=== PATIENT | male | born 1970 | race Caucasian/White ===

== ENCOUNTER → 2018-05-26 | Outpatient (CLI) | payer BC | LOC: LABWHC1 09:46 | PROVIDERS: ATTEND Internal Medicine Critical Care Medicine | DX: J45.901 Unspecified asthma with (acute) exacerbation (principal) | CPT/HCPCS: 36415; 82785 ==

== ENCOUNTER → 2020-08-01 | Outpatient (CLI) | payer BC ==
--- NOTE | 2020-08-01 10:51 | CT ---
EXAMINATION TYPE: CT heart w calcium score DATE OF EXAM: 08/01/2020 COMPARISON: HISTORY: Screening for cardiovascular disorder. 213.9 CT DLP: 179.7 mGycm Automated exposure control for dose reduction was used. CT CALCIUM SCORING Coronary calcium is a marker for plaque (fatty deposits) in a blood vessel or atherosclerosis (harden ing of the arteries). The presence and amount of calcium detected in a coronary artery by the CT sca n, indicates the presence and amount of atherosclerotic plaque. These calcium deposits appear years before the development of heart disease symptoms such as chest pain and shortness of breath. A calcium score is computed for each of the coronary arteries based upon the volume and density of th e calcium deposits. This can be referred to as your calcified plaque burden. It does not correspond directly to the percentage of narrowing in the artery but does correlate with the severity of the un derlying coronary atherosclerosis. PROCEDURE TECHNIQUE - Prospective Gating was used. Slice thickness: 3mm. Density threshold (HU): 130, Pixel threshold: 3, Algorithm: discrete. RESULTS Region: LM Calcium Score (Agatston): 7.91 Volume (mm3): 12.7 Mass (g): 0 Region: RCA Calcium Score (Agatston): 0 Volume (mm3): 0 Mass (g): 0 Region: LAD Calcium Score (Agatston): 0 Volume (mm3): 0 Mass (g): 0 Region: CX Calcium Score (Agatston): 0 Volume (mm3): 0 Mass (g): 0 Region: PDA Calcium Score (Agatston): 0 Volume (mm3): 0 Mass (g): 0 Total: Calcium Score (Agatston): 7.91 Volume (mm3): 12.7 Mass (g): 0 TOTAL CALCIUM SCORE: 7.91 IMPRESSION: Calcium Score: 7.91 Implication: Minimal identifiable plaque. Risk of Coronary Artery Disease: Very unlikely less than 10% CALCIUM SCORE IMPLICATION RISK OF C ORONARY ARTERY DISEASE 0 No identifiable plaque Very low, generally less than 5% 1-10 Minimal identifiable plaque Very unlikely, less than 10% 11-100 Definite, at least mild atherosclerotic plaque Mild or m inimal coronary narrowings likely 101-400 Definite, at least moderate atherosclerotic plaque Mild coronary ar valeria disease highly likely, significant narrowing possible 401 or Higher Extensive atherosclerotic plaque High lik elihood of at least one significant coronary narrowing
--- NOTE | 2020-08-01 12:31 | P.STRESS ---
- Stress Test Note Stress Test Results/Findings: Exam Performed: stress test Exam Date: 08/01/20 Reason for Exam: FAMILY HISTORY CAD Height: 6 ft Weight: 136.078 kg Protocol: AMELIA Stage: 3 Duration of Exercise: 7:30 Resting Heart Rate: 75 Resting Blood Pressure: 101/80 Maximum Achieved Heart Rate: 155 Maximum Achieved Blood Pressure: 216/64 85% PMHR: 145 100% PMHR: 171 METS: 9.1 Technologist Comment: Stress Test Results/Findings: This is a 49-year-old gentleman with history of hypertension, family history of ischemic heart disease and smoking history, being evaluated for cardiac status. Stress data: Baseline EKG showed sinus rhythm with normal IA interval and QRS duration. Blood pressure at rest is 101/80. Pulse rate of 75. Patient walked on the Amelia protocol for 7 minutes and 30 seconds achieving a maximum rate of 155 with a blood pressure of 216/64. EKGs taken during Site did not reveal any changes of ischemia. Patient did not experience any chest pain. Final impression: #1. Negative stress test #2 patient did not express any chest pain #3. No arrhythmias detected #4 patients exercise capacity is below averag e.
== END | disposition home or self-care (01) ==
LOC: RADNMMAIN 08:27
PROVIDERS: ATTEND Family Medicine
DX: Z13.6 Encounter for screening for cardiovascular disorders (principal); I25.10 Atherosclerotic heart disease of native coronary artery without angina pectoris; R07.9 Chest pain, unspecified
CPT/HCPCS: 75571; 93017

== ENCOUNTER 2024-02-25 09:03 | Day surgery (SDC) | payer BC ==
[2024-02-23 13:48] VITALS: BMI 39.3
[~2024-02-25 09:03] MED LIST: LIDOCAINE 1% (10MG/ML) FOR IV START INTRADERMA PRN; droPERidol 5 MG/2 ML VIAL IVP ONE; fentaNYL (PF) 50 MCG/ML 2 ML AMP IV PRN
[2024-02-25] MEDS: IV FLUID CONTINUATION 1,000 ML IV ONE (09:41)
[2024-02-25] MEDS: LACTATED RINGERS 1,000 ML IV SCH (09:50)
[2024-02-25] MEDS: MIDAZOLAM 2 MG/2 ML VIAL IV ONE (09:58)
[2024-02-25 10:18] LABS: Glucose,Whole Blood 104 mg/dL (70-110)
--- NOTE | 2024-02-25 10:18 | P.ANPRN ---
Procedure Note - Anesthesia - Nerve Block Performed Left Popliteal Single Time Out Performed: Yes Date of Procedure: 02/25/24 Procedure Start Time: 09:59 Procedure Stop Time: 10:04 Location of Patient: PreOp Indication: Acute Post-Operative Pain, Analgesia, Requested by Surgeon Sedation Type: Sedate with meaningful contact maintained Preparation: Sterile Prep Position: Right Lateral Catheter: None Needle Types: Pajunk Needle Gauge: 21 Ultrasound used to visualize needle placement: Yes Ultrasound used to observe medication spread: Yes Injectate: 0.5% Ropivacaine (see comment for volume) (Ropiv 20ml+Decadron 4mg) Blood Aspirated: No Pain Paresthesia on Injection Noted: No Resistance on Injection: Normal Image Stored and Saved: Yes Events: Uneventful and Well Tolerated
--- NOTE | 2024-02-25 10:19 | P.ANPRN ---
Procedure Note - Anesthesia - Nerve Block Performed Left Adductor Canal Single Time Out Performed: Yes Date of Procedure: 02/25/24 Procedure Start Time: 10:04 Procedure Stop Time: 10:09 Location of Patient: PreOp Indication: Acute Post-Operative Pain, Analgesia, Requested by Surgeon Sedation Type: Sedate with meaningful contact maintained Preparation: Sterile Prep Position: Supine Catheter: None Needle Types: Pajunk Needle Gauge: 21 Ultrasound used to visualize needle placement: Yes Ultrasound used to observe medication spread: Yes Injectate: 0.5% Ropivacaine (see comment for volume) (Ropiv 20ml+[id number]) Blood Aspirated: No Pain Paresthesia on Injection Noted: No Resistance on Injection: Normal Image Stored and Saved: Yes Events: Uneventful and Well Tolerated
[2024-02-25] MEDS: DEXAMETHASONE SOD PHOSPHATE 4 MG/ML 1 ML VIAL IV ONE (10:22)
[2024-02-25] MEDS: ONDANSETRON 4 MG/2 ML VIAL IVP ONE (10:22)
[2024-02-25] MEDS ORDERED: SUCCINYLCHOLINE CHLORIDE 200 MG/10 ML VIAL IV ONE (11:10)
[2024-02-25] MEDS ORDERED: LIDOCAINE 1% INJ 10MG/ML (20 ML MDV) ONE (11:10)
[2024-02-25] MEDS ORDERED: DEXAMETHASONE SOD PHOSPHATE 4 MG/ML 1 ML VIAL ONE (11:10)
[2024-02-25] MEDS ORDERED: fentaNYL (PF) 50 MCG/ML 2 ML AMP ONE (11:10)
[2024-02-25] MEDS ORDERED: PHENYLEPHRINE-0.9% NACL SYG 1,000 MCG/10 ML SYRINGE ONE (11:10)
[2024-02-25] MEDS ORDERED: PROPOFOL 10 MG/ML 20 ML VIAL IV ONE (11:10)
[2024-02-25] MEDS ORDERED: ROPIVACAINE 5 MG/ML 30 ML VIAL ONE (11:10)
[2024-02-25] MEDS: ceFAZolin 3 GM in SODIUM CHLORIDE 0.9% 100 ML IVPB PRN (11:13)
[2024-02-25] MEDS: LACTATED RINGERS 1,000 ML IV ONE (13:10)
[2024-02-25 13:45] VITALS: TEMP 96.9
--- NOTE | 2024-02-25 13:52 | P.OP ---
Date of Procedure: 02/25/24 Preoperative Diagnosis: 1. Acquired pronation deformity of left foot 2. Gastroc equinus left leg Postoperative Diagnosis: 1. Same 2. Same Procedure(s) Performed: 1. Subtalar joint arthrodesis left foot 2. Talonavicular joint arthrodesis left foot 3. Gastroc recession left leg Implants: Arthrex 7.0 mm headless screws 3, Arthrex 20 x 20 mm compression staple, 10 mL Arthrex Allosync Anesthesia: KIMA Surgeon: Kong Worrell Estimated Blood Loss (ml): 20 Pathology: none sent Condition: stable Disposition: PACU Description of Procedure: Prior to the patient being brought to the operating room, anesthesia administered a nerve block on the Operative lower extremity. The patient was brought into the operative room and placed on table in supine position. Timeout was taken to confirm correct patient identifiers, correct laterality of surgery, and correct procedure. Once all staff in the room were in agreement with the timeout, the patient was induced and placed under general anesthesia. A well- padded tourniquet was placed on the operative thigh and a wedge underneath the hip to internally rotate the leg. The leg was then prepped and draped in usual manner. The leg was exsanguinated with an Esmarch bandage and then the tourniquet was inflated to 250 mmHg. attention directed over the lateral aspect of the hindfoot where an incision was made beginning at the tip of the lateral malleolus, extending over the sinus tarsi, and ending over the cuboid. The incision was deepened down to the subcutaneous tissue careful to identify, avoid, and retract any neurovascular structures and cauterize any bleeding vessels. Blunt dissection was carried down to the joint capsule overlying the subtalar joint. The joint capsule was incised and reflected to the calcaneal fibular ligament posteriorly and the calcaneal cuboid joint anteriorly. The patient was very lax therefore it was easy to access the joint. A sharp osteotome was used to resect the articular cartilage of the conjoining surfaces of the talus and calcaneus. A 3 mm wedge bur was then utilized to remove any remaining cartilage and subchondral bone, to allow exposure of bleeding cancellous bone. Once the preparation was completedThomas attention was directed to the medial aspect of the foot, where a linear incision was made dorsal to the midline over the talonavicular joint. The incision was deepened down to the subcutaneous tissue careful to identify, a void, and retract any neurovascular structures and cauterize any bleeding vessels. dissection was carried down to the joint capsule over the talonavicular joint. The capsule was incised and reflected medially and dorsally to expose the joint. Large wires were placed on either side of the joint and then the distractor was placed over the wires and was used to open the joint for axis. The same wedge were used for the subtalar joint preparation was utilized to remove the articular cartilage and subchondral bone of the talus and the navicular. Once joint preparation of the talonavicular joint was completed, it was aggressively fenestrated through both surfaces to help promote bleeding to the bone. Then 5 mL of Arthrex AlloMatrix bone graft was placed between the arthrodesis segments of the talonavicular joint. The foot deformity was held in correction, in the sagittal and transverse planes, and then a guidewire for 7.0 mm headless screw was utilized to stabilize the joint beginning at the navicular cuneiform joint, crossing the talonavicular joint and ending in the body of the talus. Fluoroscopic imaging confirmed proper placement of the wire and correction of deformity on AP and lateral views. then attention was directed back to the subtalar joint arthrodesis site, where 5 mL of Arthrex AlloMatrix bone graft was placed between the arthrodesis segments. The subtalar joint was then held in reduction, and then similar guidewires for the 7.0 mm headless screws were placed in the posterior aspect of the calcaneus. Starting points for the screws were of the posterior aspect of the calcaneus distal to the Achilles tendon insertion. The guidewires were angle so that the across the subtalar joint into the body of the talus. Placement of the wires was done while holding the hindfoot and corrected position. Fluoroscopic imaging confirmed proper placement of the guidewires as well as maintain correction of the foot deformity. The first screw placed was at the talonavicular joint. Drilling was performed over the wire and then a 7.0 mm screw was inserted over the wire and advanced until it engaged the bone of the navicular and provided compression across the arthrodesis site. Fluoroscopic imaging confirmed proper placement of the screw. The dorsal tissue over the joint was reflected for the placement of the compression staple. Drill holes were made on either side of the arthrodesis site. Once drilling was completed a compression staple was inserted into the drill holes and then the charge aide was released to allow the legs of the stable to begin compression. Fluoroscopic imaging showed proper placement of the staple across the joint. Attention was redirected back to the subtalar arthrodesis. Drilling was performed over the previously placed guidewires. 7.0 mm headless screws were placed over the guidewires and advanced until the proximal portion of the screw engaged the posterior aspect of the calcaneus and compressed the subtalar joint. Final fluoroscopic imaging showed proper placement of all hardware as well as maintain reduction of the deformities. Visually, each surgical site was inspected to ensure that there was stability of the fixation as well as in the arthrodesis sites. Once completed all wounds were thoroughly irrigated with antibiotic saline. Deep closure was done with 2-0 Vicryl. Subcu closure done with 3-0 Monocryl. Skin closure done with nichole. Attention was then directed over the posterior medial aspect of the calf. An incision was made over the Achilles tendon aponeurosis distal to the gastroc mu scle belly. The incision was deepened down to the subcutaneous tissue there for to identify, avoid, and retract any neurovascular structures and cauterize any bleeding vessels. Blunt dissection was continued down to the deep fascia. The fascia was incised over the aponeurosis and then the tissue was reflected bluntly from the aponeurosis. The aponeurosis is mobilizing transverse incision was made from lateral to medial through the aponeurosis taking care to prevent significant trauma to the underlying muscle belly. Once released ankle was dorsiflexed and a 1.5 cm to 2.0 cm gap appeared indicating a full release. The wound was irrigated thoroughly with antibiotic saline. Subcutaneous closure was done with 3-0 Monocryl and skin closure done with nichole. Arthrex jumpstart was placed over each incision and then a bulky dry dressings applied to the left foot and leg. The tourniquet was released and capillary refill return to all digits on the left foot. Then a well-padded, well molded plaster posterior mold/sugar tong splint was applied to the leg. The ankle was held in neutral position and the subtalar joint in slight inversion as it dried. Then anesthesia was reversed and the patient was taken recovery with vital signs stable
[2024-02-25 15:21] VITALS: RESP 18
[2024-02-25 15:43] VITALS: BP 108/69; PULSE 78
== END 2024-02-25 15:58 | disposition home or self-care (01) ==
LOC: OR 09:03
PROVIDERS: ATTEND Podiatrist
DX: M62.462 Contracture of muscle, left lower leg (principal); M21.072 Valgus deformity, not elsewhere classified, left ankle; M21.6X2 Other acquired deformities of left foot; M21.42 Flat foot [pes planus] (acquired), left foot; S93.02XD Subluxation of left ankle joint, subsequent encounter; G89.18 Other acute postprocedural pain; I10 Essential (primary) hypertension; J45.909 Unspecified asthma, uncomplicated; Z79.85 Long-term (current) use of injectable non-insulin antidiabetic drugs; Z79.899 Other long term (current) drug therapy; Z96.641 Presence of right artificial hip joint
CPT/HCPCS: 64447; 64445; 28725; 27687; 28740; C1713; C1734; J2250; J0330; J1100; J0690; J2405; J2003; J3010; J2795; J2704; J2371